=== PATIENT | female | born 1970 | race African-American/Black ===

== ENCOUNTER 2018-09-18 13:20 | Emergency (ER) | payer SELFPAY ==
[~2018-09-18] VITALS: Ht 167.6 cm; Wt 59.0 kg
[2018-09-18] MEDS ORDERED: SODIUM CHLORIDE 0.9% 1,000 ML IV ONE (14:09)
[2018-09-18] MEDS ORDERED: LORAZEPAM 2MG/ML CPJ IV ONE (14:15)
[2018-09-18 14:28] LABS: BASOPHILS % 0.6 % (0.0-2.0); EOSINOPHILS % 0.1 % (0.0-5.0); HEMATOCRIT. 41.4 % (36.0-48.0); LYMPHOCYTES % 14.6 % (20.0-50.0); MEAN CORPUSCULAR VOLUME 106.6 fL (81.0-99.0); MEAN PLATELET VOLUME 7.4 fl (7.4-10.4); MONOCYTES % 3.6 % (2.0-8.0); NEUTROPHILS % 81.1 % (40.0-76.0); PLATELET 302 x1000/uL (130-400); RED BLOOD CELL COUNT 3.88 mill/uL (4.2-5.4); RED CELL DISTRIBUTION WIDTH 13.1 % (11.6-14.6)
[2018-09-18] MEDS ORDERED: ONDANSETRON HCL 4MG/2ML INJ IV ONE ×2 (14:30→17:15)
[2018-09-18 14:35] LABS: CHLORIDE 110 mEq/L (98-107); PROTHROMBIN TIME 10.1 sec (9.6-11.0)
[2018-09-18 14:38] LABS: HCG SCREEN NEGATIVE
[2018-09-18 14:39] LABS: ETHANOL BLOOD 119 mg/dL
[2018-09-18 15:13] LABS: *BARBITURATES SCREEN URINE NEGATIVE (NEGATIVE); *BENZODIAZEPINES SCREEN URINE NEGATIVE (NEGATIVE); *COCAINE SCREEN URINE NEGATIVE (NEGATIVE); METHADONE URINE SCREEN NEGATIVE (NEGATIVE)
[2018-09-18 15:14] LABS: PHENCYCLIDINE URINE SCREEN NEGATIVE (NEGATIVE)
[2018-09-18 15:19] LABS: *AMPHETAMINES SCREEN URINE PRESUMTIVE POSITIVE (NEGATIVE); CANNABINOID URINE SCREEN PRESUMTIVE POSITIVE (NEGATIVE); OPIATES URINE SCREEN PRESUMTIVE POSITIVE (NEGATIVE)
[2018-09-18] MEDS ORDERED: IBUPROFEN 600MG TABLET PO ONE (17:15)
[2018-09-18] MEDS ORDERED: LORAZEPAM 1MG TABLET PO ONE (17:15)
[2018-09-18] MEDS ORDERED: IOHEXOL-350 100 ML BOTTLE ONE (17:23)
[2018-09-19] MEDS ORDERED: ACETAMINOPHEN 500MG TABLET PO NR (05:45)
[2018-09-19 11:30] VITALS: BP 143/78
[2018-09-19] MEDS ORDERED: ACETAMINOPHEN 500MG TABLET PO ONE (11:30)
== END 2018-09-19 12:20 | disposition home or self-care (01) ==
LOC: ER 13:20
DX: T43.621A Poisoning by amphetamines, accidental (unintentional), initial encounter (principal); R51 Headache; F12.10 Cannabis abuse, uncomplicated; I10 Essential (primary) hypertension; Z59.0 Homelessness; Z86.79 Personal history of other diseases of the circulatory system; Y92.89 Other specified places as the place of occurrence of the external cause
CPT/HCPCS: 36415; 70496; 80053; 80305; 80307; 80320; 80329; 84703; 85025; 85610; 93005; 96374; 96375; 96376; 99284; J2060; J2405; J7030; Q9967; G0480